=== PATIENT | female | born 1985 | race Asian ===

== ENCOUNTER 2017-02-12 09:04 | Inpatient (IN) | payer SELFPAY ==
[~2017-02-12] VITALS: Ht 154.9 cm; Wt 92.3 kg
[~2017-02-12 09:04] MED LIST: METF500T4 PO
[2017-02-12] MEDS ORDERED: ONDANSETRON 2MG/ML, 2ML IVPush ONE (10:00)
[2017-02-12] MEDS ORDERED: SODIUM CHLORIDE 0.9% 1,000ML IVBOLUS ONE (10:00)
[2017-02-12] MEDS ORDERED: SODIUM CHLORIDE FLUSH 10ML SYR IVF ONE (10:00)
[2017-02-12 10:12] LABS: HEMOGLOBIN 8.4 g/dL (11.7-16.4)
[2017-02-12] MEDS ORDERED: MORPHINE SULFATE 4 MG/ML, 1ML ONE ×2 (10:14→11:39)
[2017-02-12] MEDS ORDERED: ONDANSETRON 2MG/ML, 2ML ONE (10:14)
[2017-02-12] MEDS: MORPHINE SULFATE 4 MG/ML, 1ML IVPush PRN ×2 (10:23→11:48)
[2017-02-12 10:28] LABS: DIFF TOTAL CELLS COUNTED 100 CELL DIFF
[2017-02-12 10:30] LABS: ASPARTATE AMINO TRANSFERASE 8 U/L (15-37); BLOOD UREA NITROGEN 6 mg/dL (7-18)
[2017-02-12 10:31] LABS: ANISOCYTOSIS 2+; VERIFY COUNTS? YES
[2017-02-12 10:32] LABS: MICROCYTOSIS 2+; OVALOCYTES 1+
[2017-02-12 10:33] LABS: HYPOCHROMIA 2+
[2017-02-12 10:34] LABS: SCHISTOCYTES 1+
[2017-02-12] MEDS ORDERED: OMNIPAQUE 350 MG/ML, 100ML BOTTLE ONE (11:19)
[2017-02-12] MEDS ORDERED: CEFTRIAXONE PMX 1GM/50ML 50 ML IVPB ONE (13:00)
[2017-02-12] MEDS ORDERED: AZITHROMYCIN 500 MG TABLET PO ONE (13:00)
[2017-02-12] MEDS ORDERED: AZITHROMYCIN 250 MG TABLET ONE (13:07)
[2017-02-12] MEDS ORDERED: CEFTRIAXONE PMX 1GM/50ML 50 ML ONE (13:07)
[2017-02-12] MEDS ORDERED: AZITHROMYCIN 500 MG in SODIUM CHLORIDE 0.9% 250 ML IV ONE (14:00)
[2017-02-12] MEDS ORDERED: SODIUM CHLORIDE FLUSH 10ML SYR IVF PRN (15:00)
[2017-02-12] MEDS: SODIUM CHLORIDE 0.9% 1,000 ML IV SCH (15:43)
[2017-02-12] MEDS ORDERED: MORPHINE SULFATE 4 MG/ML, 1ML IVPush PRN (16:00)
[2017-02-12] MEDS ORDERED: LORazepam 2 MG/ML, 1ML IVPush PRN (16:00)
[2017-02-12] MEDS ORDERED: ONDANSETRON 2MG/ML, 2ML IVP PRN (16:00)
[2017-02-12] MEDS ORDERED: HYDROcodone/APAP 5/325 TABLET PO PRN (16:00)
[2017-02-12] MEDS ORDERED: IRON DEXTRAN IV PER PHARMACY IV PRN (16:00)
[2017-02-12] MEDS ORDERED: IRON DEXTRAN COMPLEX 25 MG in SODIUM CHLORIDE 0.9% 50 ML IV ONE ×2 (16:30→20:00)
[2017-02-12] MEDS: CEFOTETAN PMX 2GM/50ML 50 ML IV SCH (16:39)
[2017-02-12] MEDS ORDERED: IRON DEXTRAN COMPLEX 1,250 MG in SODIUM CHLORIDE 0.9% 250 ML IV ONE ×2 (17:30→21:00)
[2017-02-12] MEDS: DOXYCYCLINE 100 MG in DEXTROSE 5% 250 ML IV SCH (17:43)
[2017-02-12 17:58] VITALS: BP 110/74
[2017-02-12 19:54] VITALS: BP 111/74
[2017-02-12] MEDS ORDERED: EPINEPHRINE 1 MG/ML, 1ML ONE (20:22)
[2017-02-12] MEDS: FAMOTIDINE 20 MG/2 ML IV SCH (21:00)
[2017-02-13 03:27] VITALS: BP 103/69
[2017-02-13 05:43] LABS: HEMOGLOBIN 7.8 g/dL (11.7-16.4)
[2017-02-13] MEDS: CEFOTETAN PMX 2GM/50ML 50 ML IV SCH ×2 (05:47→17:27)
[2017-02-13 06:06] LABS: BLOOD UREA NITROGEN 6 mg/dL (7-18)
[2017-02-13 06:15] LABS: DIFF TOTAL CELLS COUNTED 100 CELL DIFF
[2017-02-13 06:22] LABS: ANISOCYTOSIS 2+; HYPOCHROMIA 2+; MICROCYTOSIS 2+; OVALOCYTES 1+; VERIFY COUNTS? YES
[2017-02-13 06:24] LABS: SCHISTOCYTES 1+
[2017-02-13] MEDS: DOXYCYCLINE 100 MG in DEXTROSE 5% 250 ML IV SCH (06:31)
[2017-02-13 07:21] VITALS: BP 121/81
[2017-02-13] MEDS: FAMOTIDINE 20 MG/2 ML IV SCH ×2 (09:00→21:00)
[2017-02-13] MEDS: SODIUM CHLORIDE 0.9% 1,000 ML IV SCH ×3 (11:43→21:02)
[2017-02-13 12:30] VITALS: BP 136/77
[2017-02-13 20:15] VITALS: BP 130/80
[2017-02-13] MEDS: DOXYCYCLINE 100MG TABLET PO SCH (21:02)
[2017-02-14] VITALS (7 sets, daily range): BP systolic 132–147; BP diastolic 69–85
[2017-02-14] MEDS: CEFOTETAN PMX 2GM/50ML 50 ML IV SCH ×2 (04:27→17:00)
[2017-02-14 05:35] LABS: HEMOGLOBIN 7.7 g/dL (11.7-16.4)
[2017-02-14 05:53] LABS: DIFF TOTAL CELLS COUNTED 100 CELL DIFF
[2017-02-14 05:56] LABS: ANISOCYTOSIS 2+; MICROCYTOSIS 2+; VERIFY COUNTS? YES
[2017-02-14 05:57] LABS: OVALOCYTES 1+; SCHISTOCYTES 1+
[2017-02-14 05:59] LABS: HYPOCHROMIA 1+; LARGE PLATELETS 1+
[2017-02-14] MEDS: DOXYCYCLINE 100MG TABLET PO SCH (08:40)
[2017-02-14] MEDS: FAMOTIDINE 20 MG/2 ML IV SCH ×2 (08:40→08:41)
[2017-02-14] MEDS: SODIUM CHLORIDE 0.9% 1,000 ML IV SCH ×2 (08:41→17:43)
[2017-02-14] MEDS ORDERED: AZITHROMYCIN 500 MG TABLET PO SCH (09:00)
[2017-02-14] MEDS ORDERED: AZIT500T4 PO (15:41)
[2017-02-14] MEDS ORDERED: FERR325T20 PO (15:41)
[2017-02-14] MEDS ORDERED: DOXY100T PO (15:42)
== END 2017-02-14 21:30 | disposition home or self-care (01) | DRG 759 ==
LOC: ED 09:54 → EDIP 14:34 → 3NE 15:53
PROVIDERS: ADMIT Internal Medicine; ATTEND Family Medicine
PROC: 0T9B70Z Drainage of Bladder with Drainage Device, Via Natural or Artificial Opening (ICD-10-PCS; principal; 2017-02-12)
DX: N73.0 Acute parametritis and pelvic cellulitis (principal); E66.9 Obesity, unspecified; Z82.49 Family history of ischemic heart disease and other diseases of the circulatory system; Z87.440 Personal history of urinary (tract) infections; Z83.3 Family history of diabetes mellitus; D53.9 Nutritional anemia, unspecified; N92.0 Excessive and frequent menstruation with regular cycle; E11.9 Type 2 diabetes mellitus without complications; N73.1 Chronic parametritis and pelvic cellulitis; Z88.8 Allergy status to other drugs, medicaments and biological substances; Z80.49 Family history of malignant neoplasm of other genital organs; Z68.38 Body mass index [BMI] 38.0-38.9, adult
CPT/HCPCS: 36415; 74177; 80048; 80053; 81001; 82728; 83690; 84703; 85025; 86850; 86900; 86923; 87491; 87591; 96361; 96365; 96375; 96376; J0696; J1750; J2405; J7060; Q9967; J7030; J7050; P9016; S0028; S0074

== ENCOUNTER 2017-03-21 08:18 | Emergency (ER) | payer SELFPAY ==
[~2017-03-21] VITALS: Ht 154.9 cm; Wt 96.8 kg
[~2017-03-21 08:18] MED LIST changes: +AZIT500T77 PO; +DOXY100T PO; +FERR325T20 PO
[2017-03-21 09:57] LABS: BLOOD UREA NITROGEN 9 mg/dL (7-18)
[2017-03-21 10:03] LABS: ASPARTATE AMINO TRANSFERASE 7 U/L (15-37)
[2017-03-21 10:07] LABS: ANISOCYTOSIS 2+; HYPOCHROMIA 1+; MICROCYTOSIS 2+; OVALOCYTES 1+
[2017-03-21 10:08] LABS: LARGE PLATELETS 1+
[2017-03-21 10:22] LABS: PATH.CAST-FLAG NOT PRESENT; SPERM-FLAG NOT PRESENT; SRC-FLAG NOT PRESENT; XTAL-FLAG NOT PRESENT; YLC-FLAG NOT PRESENT
[2017-03-21 10:58] VITALS: BP 122/68
== END 2017-03-21 11:02 | disposition home or self-care (01) ==
LOC: ED 09:42
DX: A08.4 Viral intestinal infection, unspecified (principal); E11.9 Type 2 diabetes mellitus without complications
CPT/HCPCS: 36415; 76700; 80053; 81001; 83690; 84703; 85025; 87086; 87147; 99285

== ENCOUNTER 2017-06-04 16:13 | Emergency (ER) | payer SELFPAY ==
[~2017-06-04] VITALS: Ht 154.9 cm; Wt 93.9 kg
[2017-06-04 16:14] VITALS: BP 143/93
== END 2017-06-04 16:57 | disposition home or self-care (01) ==
LOC: ED 16:40
DX: L03.032 Cellulitis of left toe (principal); E11.9 Type 2 diabetes mellitus without complications
CPT/HCPCS: 99283

== ENCOUNTER 2018-01-06 18:56 | Emergency (ER) | payer OTHER ==
[~2018-01-06] VITALS: Ht 154.9 cm; Wt 100.4 kg
[~2018-01-06 18:56] MED LIST changes: +AZIT500T5 PO; -AZIT500T77 PO; +FERR325T18 PO; -FERR325T20 PO
[2018-01-06 18:58] VITALS: BP 150/84
[2018-01-06] MEDS ORDERED: DIPH,PERTUSS(ACELL),TET VAC/PF 0.5 ML IM-VACC ONE ×2 (19:30→19:58)
[2018-01-06] MEDS ORDERED: LIDOCAINE-MPF 1%, 5ML INFIL ONE (19:30)
[2018-01-06] MEDS ORDERED: LIDOCAINE-MPF 1%, 2ML ONE (19:58)
== END 2018-01-06 20:23 | disposition home or self-care (01) ==
LOC: ED 20:17
DX: L02.415 Cutaneous abscess of right lower limb (principal); F17.200 Nicotine dependence, unspecified, uncomplicated; W22.8XXA Striking against or struck by other objects, initial encounter; Y93.89 Activity, other specified; Y99.8 Other external cause status; Y92.009 Unspecified place in unspecified non-institutional (private) residence as the place of occurrence of the external cause
CPT/HCPCS: 10060; 90471; 90715

== ENCOUNTER 2018-01-09 10:13 | Emergency (ER) | payer OTHER ==
[~2018-01-09] VITALS: Ht 154.9 cm; Wt 100.6 kg
[2018-01-09 10:30] VITALS: BP 131/75
[2018-01-09] MEDS ORDERED: BACITRACIN ZINC OINT 500U/GM, 0.9 GM ONE (10:58)
== END 2018-01-09 11:37 | disposition home or self-care (01) ==
LOC: ED 11:26
DX: Z48.01 Encounter for change or removal of surgical wound dressing (principal); E11.9 Type 2 diabetes mellitus without complications; E66.9 Obesity, unspecified; F17.200 Nicotine dependence, unspecified, uncomplicated
CPT/HCPCS: 99283

== ENCOUNTER 2018-01-21 07:14 | Emergency (ER) | payer OTHER ==
[~2018-01-21] VITALS: Ht 154.9 cm; Wt 95.2 kg
[2018-01-21 07:15] VITALS: BP 124/80
== END 2018-01-21 08:31 | disposition home or self-care (01) ==
LOC: ED 08:25
DX: M25.512 Pain in left shoulder (principal); E11.9 Type 2 diabetes mellitus without complications; F17.200 Nicotine dependence, unspecified, uncomplicated
CPT/HCPCS: 99281

== ENCOUNTER 2018-02-05 08:55 | Emergency (ER) | payer OTHER ==
[~2018-02-05] VITALS: Ht 154.9 cm; Wt 97.0 kg
[2018-02-05 09:04] VITALS: BP 121/75
== END 2018-02-05 09:32 | disposition home or self-care (01) ==
LOC: ED 09:14
DX: M79.642 Pain in left hand (principal); M25.512 Pain in left shoulder; E66.9 Obesity, unspecified; E11.9 Type 2 diabetes mellitus without complications; G90.50 Complex regional pain syndrome I, unspecified
CPT/HCPCS: 99282

== ENCOUNTER 2018-05-01 05:36 | Emergency (ER) | payer SELFPAY ==
[~2018-05-01] VITALS: Ht 160 cm; Wt 95.1 kg
[~2018-05-01 05:36] MED LIST changes: -METF500T4 PO; +METF500T5 PO
[2018-05-01 05:39] VITALS: BP 136/86
[2018-05-01] MEDS ORDERED: DEXAMETHASONE 4 MG TABLET PO ONE (06:30)
[2018-05-01] MEDS ORDERED: DEXAMETHASONE 4 MG TABLET ONE (06:34)
== END 2018-05-01 07:50 | disposition home or self-care (01) ==
LOC: ED 07:48
DX: J02.9 Acute pharyngitis, unspecified (principal)
CPT/HCPCS: 71046; 87081; 87880; 99285

== ENCOUNTER 2018-05-20 05:00 | Emergency (ER) | payer SELFPAY ==
[~2018-05-20] VITALS: Ht 154.9 cm; Wt 92.3 kg
[2018-05-20] MEDS ORDERED: FAMOTIDINE 20 MG/2 ML ONE (05:25)
[2018-05-20] MEDS ORDERED: MORPHINE SULFATE 4 MG/ML, 1ML ONE (05:25)
[2018-05-20] MEDS ORDERED: ONDANSETRON ODT 4 MG ONE (05:25)
[2018-05-20] MEDS ORDERED: FAMOTIDINE 20 MG/2 ML IVP ONE (05:30)
[2018-05-20] MEDS ORDERED: SODIUM CHLORIDE FLUSH 10ML SYR IVF ONE (05:30)
[2018-05-20] MEDS ORDERED: MORPHINE SULFATE 4 MG/ML, 1ML IVPush PRN (05:30)
[2018-05-20 05:50] LABS: MEAN CORPUSCULAR HEMOGLOBIN 19.3 pg (27.0-34.8); MEAN CORPUSCULAR HGB CONC 30.4 g/dL (32.4-35.8); MEAN CORPUSCULAR VOLUME 63.7 fL (80-100); PLATELET COUNT 374 x10^3/uL (130-400); RED BLOOD COUNT 4.77 x10^6/uL (3.82-5.3); RED CELL DISTRIBUTION WIDTH 20.8 % (9.6-15.2)
[2018-05-20 05:52] LABS: MICROSCOPIC INDICATED
[2018-05-20 05:59] LABS: ALBUMIN 3.5 g/dL (3.4-5.0); ANION GAP 7 mmol/L (5-15); CALCIUM 8.6 mg/dL (8.5-10.1); CHLORIDE 111 mmol/L (98-107)
[2018-05-20 06:01] LABS: CULTURE INDICATED? NO
[2018-05-20 06:04] LABS: ALANINE AMINOTRANSFERASE 13 U/L (12-78); ALKALINE PHOSPHATASE 63 U/L (45-117); BILIRUBIN,TOTAL 0.6 mg/dL (0.2-1.0); CREATININE 0.57 mg/dL (0.55-1.02); TOTAL PROTEIN 7.4 g/dL (6.4-8.2)
[2018-05-20 06:12] LABS: ANISOCYTOSIS 2+; BASOPHILS # (AUTO) 0.02 x10^3/uL (0-0.1); BASOPHILS % (AUTO) 0 % (0-1); EOSINOPHILS % (AUTO) 2 % (1-7); LYMPHOCYTES # (AUTO) 1.73 x10^3/uL (1-3.4); LYMPHOCYTES % (AUTO) 28 % (22-44); MD MORPH REVIEW ONLY; MICROCYTOSIS 2+; MONOCYTES # (AUTO) 0.28 x10^3/uL (0.2-0.8); MONOCYTES % (AUTO) 5 % (2-9); NEUTROPHILS # (AUTO) 4.04 x10^3/uL (1.8-6.8); NEUTROPHILS % (AUTO) 66 % (42-75)
[2018-05-20 06:13] LABS: <PLATELET ESTIMATE> ADEQUATE; <PLT MORPHOLOGY> NORMAL PLT MORPH; OVALOCYTES 1+; POLYCHROMASIA 1+
[2018-05-20 06:29] VITALS: BP 114/64
[2018-05-20] MEDS ORDERED: KETOROLAC 30 MG/1 ML IVPush ONE (07:00)
[2018-05-20] MEDS ORDERED: MAALOX/HYOSCYAMINE/LIDOCAINE 45 ML BTL PO ONE (07:00)
[2018-05-20] MEDS ORDERED: KETOROLAC 30 MG/1 ML ONE (07:23)
[2018-05-20] MEDS ORDERED: MAALOX/HYOSCYAMINE/LIDOCAINE 45 ML BTL ONE (07:23)
[2018-05-20] MEDS ORDERED: DICYCLOMINE 10 MG/ML, 2ML ONE (07:24)
[2018-05-20] MEDS ORDERED: DICYCLOMINE 10 MG/ML, 2ML IM ONE (07:30)
[2018-05-20] MEDS ORDERED: PROMETHAZINE 25 MG/ML, 1ML ONE (07:35)
[2018-05-20] MEDS ORDERED: PROMETHAZINE 25 MG/ML, 1ML IM ONE (08:00)
== END 2018-05-20 08:16 | disposition home or self-care (01) ==
LOC: ED 06:36
DX: K29.00 Acute gastritis without bleeding (principal); K82.4 Cholesterolosis of gallbladder; E11.9 Type 2 diabetes mellitus without complications
CPT/HCPCS: 36415; 76700; 80053; 81001; 83690; 84703; 85025; 96372; 96374; 96375; 99285; J0500; J1885; J2550; S0028

== ENCOUNTER 2018-05-22 06:56 | Observation (INO) | payer OTHER ==
[~2018-05-22] VITALS: Ht 154.9 cm; Wt 94.2 kg
[2018-05-22] MEDS ORDERED: SODIUM CHLORIDE FLUSH 10ML SYR IVF ONE (08:00)
[2018-05-22] MEDS ORDERED: ONDANSETRON 2MG/ML, 2ML IVPush ONE ×2 (08:00→13:30)
[2018-05-22] MEDS ORDERED: SODIUM CHLORIDE 0.9% 1,000ML IVBOLUS ONE (08:00)
[2018-05-22] MEDS ORDERED: ONDANSETRON 2MG/ML, 2ML ONE ×2 (08:07→12:45)
[2018-05-22] MEDS ORDERED: MORPHINE SULFATE 4 MG/ML, 1ML ONE ×2 (08:08→09:08)
[2018-05-22] MEDS: MORPHINE SULFATE 4 MG/ML, 1ML IVPush PRN ×2 (08:26→09:12)
[2018-05-22 08:34] LABS: MEAN CORPUSCULAR HGB CONC 30.1 g/dL (32.4-35.8); MEAN CORPUSCULAR VOLUME 63.3 fL (80-100); MEAN PLATELET VOLUME 7.7 fL (7.4-10.4); PLATELET COUNT 352 x10^3/uL (130-400); RED BLOOD COUNT 4.48 x10^6/uL (3.82-5.3); RED CELL DISTRIBUTION WIDTH 20.8 % (9.6-15.2)
[2018-05-22 08:37] LABS: ALBUMIN 3.2 g/dL (3.4-5.0); ANION GAP 7 mmol/L (5-15); CALCIUM 7.9 mg/dL (8.5-10.1); CHLORIDE 111 mmol/L (98-107); CREATININE 0.55 mg/dL (0.55-1.02)
[2018-05-22 08:51] LABS: BASOPHILS # (AUTO) 0.05 x10^3/uL (0-0.1); BASOPHILS % (AUTO) 1 % (0-1); EOSINOPHILS # (AUTO) 0.05 x10^3/uL (0-0.4); EOSINOPHILS % (AUTO) 1 % (1-7); LYMPHOCYTES # (AUTO) 1.51 x10^3/uL (1-3.4); LYMPHOCYTES % (AUTO) 22 % (22-44); MD MORPH REVIEW ONLY; MONOCYTES # (AUTO) 0.42 x10^3/uL (0.2-0.8); MONOCYTES % (AUTO) 6 % (2-9); NEUTROPHILS # (AUTO) 4.87 x10^3/uL (1.8-6.8); NEUTROPHILS % (AUTO) 71 % (42-75)
[2018-05-22 08:52] LABS: ANISOCYTOSIS 2+; HYPOCHROMIA 1+; MICROCYTOSIS 2+; POLYCHROMASIA 1+
[2018-05-22 08:53] LABS: <PLATELET ESTIMATE> ADEQUATE; <PLT MORPHOLOGY> NORMAL PLT MORPH; OVALOCYTES 1+
[2018-05-22] MEDS ORDERED: D5%-0.45% NACL 1,000 ML IV ONE (09:10)
[2018-05-22] MEDS ORDERED: ONDANSETRON 2MG/ML, 2ML IVPush PRN ×2 (09:30→12:30)
[2018-05-22] MEDS ORDERED: CEFOTETAN PMX 2GM/50ML 50 ML IV ONE (09:30)
[2018-05-22] MEDS ORDERED: MORPHINE SULFATE 4 MG/ML, 1ML IVPush PRN ×3 (09:30→12:30)
[2018-05-22] MEDS ORDERED: OMNIPAQUE 350 MG/ML, 100ML BOTTLE ONE (09:50)
[2018-05-22 09:55] VITALS: BP 127/70
[2018-05-22] MEDS ORDERED: FENTANYL PF 250 MCG/5ML ONE (10:10)
[2018-05-22] MEDS ORDERED: MIDAZOLAM 1 MG/ML, 2ML ONE (10:10)
[2018-05-22] MEDS ORDERED: PROPOFOL 10 MG/ML, 20ML ONE (10:11)
[2018-05-22] MEDS ORDERED: ROCURONIUM 10MG/ML,5ML ONE (10:12)
[2018-05-22] MEDS ORDERED: NEOSTIGMINE 1 MG/ML, 10ML ONE (10:13)
[2018-05-22] MEDS ORDERED: GLYCOPYRROLATE 0.4 MG/2 ML, 2ML ONE (10:13)
[2018-05-22 10:48] LABS: MICROSCOPIC AUTO
[2018-05-22] MEDS ORDERED: EPINEPHRINE 1 MG/ML, 1ML ONE (10:51)
[2018-05-22] MEDS ORDERED: BUPIVACAINE/PF 0.5% ONE (10:51)
[2018-05-22 10:55] LABS: CULTURE INDICATED? YES
[2018-05-22] MEDS ORDERED: PROMETHAZINE 12.5 MG SUPP PR PRN (11:00)
[2018-05-22] MEDS ORDERED: LABETALOL 5MG/ML, 20ML IV PRN (11:00)
[2018-05-22] MEDS ORDERED: MEPERIDINE/PF 25MG/0.5ML IVPush PRN (11:00)
[2018-05-22] MEDS ORDERED: FENTANYL PF 100 MCG/2ML IV PRN ×2 (11:00→13:30)
[2018-05-22] MEDS ORDERED: hydrALAzine 20 MG/ML, 1ML IV PRN (11:00)
[2018-05-22] MEDS ORDERED: ONDANSETRON ODT 8 MG PO PRN (11:00)
[2018-05-22] MEDS ORDERED: OXYcodone 5 MG/5 ML ORAL.SOL UDC PO PRN ×3 (11:00→13:30)
[2018-05-22] MEDS ORDERED: PROMETHAZINE 25 MG SUPP PR PRN (11:00)
[2018-05-22] MEDS ORDERED: PROMETHAZINE 25 MG/ML, 1ML IV PRN ×2 (11:00→13:30)
[2018-05-22] MEDS ORDERED: HYDROmorphone 1 MG/ML, 1ML IV PRN (11:00)
[2018-05-22 11:01] LABS: HCG UR SG 1.036 (1.003-1.030)
[2018-05-22] MEDS ORDERED: DEXAMETHASONE 4 MG/ML, 1ML ONE (11:27)
[2018-05-22] MEDS ORDERED: CEFOTETAN PMX 2GM/50ML 50 ML ONE (11:28)
[2018-05-22] MEDS ORDERED: DIPHENHYDRAMINE 50 MG/ML, 1ML IV PRN (12:30)
[2018-05-22] MEDS ORDERED: KETOROLAC 30 MG/1 ML IV PRN (12:30)
[2018-05-22] MEDS ORDERED: ACETAMINOPHEN 650 MG/20.3 ML UDC PO PRN (12:30)
[2018-05-22] MEDS ORDERED: OXYcodone 5 MG/5 ML ORAL.SOL UDC ONE (12:40)
[2018-05-22] MEDS ORDERED: PROMETHAZINE 25 MG/ML, 1ML ONE (13:02)
[2018-05-22] MEDS ORDERED: HALOPERIDOL 5 MG/ML ONE (13:03)
[2018-05-22] MEDS ORDERED: FENTANYL PF 100 MCG/2ML ONE (13:13)
[2018-05-22] MEDS: POTASSIUM CHLORIDE 20 MEQ in D5%-0.45% NACL 1,000 ML IV SCH ×2 (14:35→23:06)
[2018-05-22 19:07] VITALS: BP 134/83
[2018-05-22] MEDS: CEFOTETAN PMX 1GM/50ML 50 ML IVPB SCH ×2 (21:29→23:00)
[2018-05-23 01:00] VITALS: BP 135/81
[2018-05-23 04:00] VITALS: BP 117/75
[2018-05-23 05:08] LABS: BASOPHILS % (AUTO) 0 % (0-1); EOSINOPHILS # (AUTO) 0.01 x10^3/uL (0-0.4); EOSINOPHILS % (AUTO) 0 % (1-7); LYMPHOCYTES # (AUTO) 1.06 x10^3/uL (1-3.4); LYMPHOCYTES % (AUTO) 13 % (22-44); MD NO; MEAN CORPUSCULAR HEMOGLOBIN 19.1 pg (27.0-34.8); MEAN CORPUSCULAR VOLUME 63.7 fL (80-100); MEAN PLATELET VOLUME 8.3 fL (7.4-10.4); MONOCYTES # (AUTO) 0.31 x10^3/uL (0.2-0.8); MONOCYTES % (AUTO) 4 % (2-9); NEUTROPHILS # (AUTO) 6.58 x10^3/uL (1.8-6.8); NEUTROPHILS % (AUTO) 83 % (42-75); PLATELET COUNT 381 x10^3/uL (130-400); RED BLOOD COUNT 4.43 x10^6/uL (3.82-5.3)
[2018-05-23 05:13] LABS: ANION GAP 5 mmol/L (5-15); CALCIUM 8.7 mg/dL (8.5-10.1); CHLORIDE 110 mmol/L (98-107); CREATININE 0.71 mg/dL (0.55-1.02)
[2018-05-23 07:30] VITALS: BP 117/74
[2018-05-23] MEDS: POTASSIUM CHLORIDE 20 MEQ in D5%-0.45% NACL 1,000 ML IV SCH (08:32)
[2018-05-23] MEDS ORDERED: OXYC5TAB2 PO (08:50)
[2018-05-23] MEDS ORDERED: ONDA4TAB7 PO (08:52)
[2018-05-23] MEDS ORDERED: ENOXAPARIN 40 MG/0.4 ML SQ SCH (09:00)
[2018-05-23 09:37] VITALS: BP 127/68
== END 2018-05-23 10:35 | disposition home or self-care (01) ==
LOC: OR 09:09 → EDIP 09:10 → INTOOBSV 09:10 → OR 09:23 → 4NOR 09:51 → DCLOUNGE 05-23 10:19
PROVIDERS: ADMIT Surgery; ATTEND Surgery
DX: K35.80 Unspecified acute appendicitis (principal); N80.9 Endometriosis, unspecified; E11.9 Type 2 diabetes mellitus without complications; D64.9 Anemia, unspecified
CPT/HCPCS: 36415; 44970; 74177; 80048; 81001; 81025; 82040; 85025; 87086; 88304; 96361; 96365; 96366; 96375; 96376; 99285; G0378; J0171; J1100; J1650; J1885; J2250; J2405; J2550; J2704; J2710; J3010; J3480; J3490; J7030; Q9967; S0074

== ENCOUNTER 2018-07-31 05:41 | Emergency (ER) | payer BC, MEDICAID, OTHER ==
[~2018-07-31] VITALS: Ht 154.9 cm; Wt 91.2 kg
[~2018-07-31 05:41] MED LIST changes: +METF500T17 PO; -METF500T5 PO; +ONDA4TAB7 PO; +OXYC5TAB2 PO
[2018-07-31] MEDS ORDERED: ONDANSETRON ODT 4 MG ONE (06:19)
[2018-07-31] MEDS ORDERED: MORPHINE SULFATE 4 MG/ML, 1ML ONE (06:19)
[2018-07-31 06:27] LABS: CULTURE INDICATED? YES; MICROSCOPIC INDICATED
[2018-07-31] MEDS ORDERED: ONDANSETRON ODT 4 MG PO ONE (06:30)
[2018-07-31] MEDS ORDERED: SODIUM CHLORIDE FLUSH 10ML SYR IVF ONE (06:30)
[2018-07-31] MEDS ORDERED: MORPHINE SULFATE 4 MG/ML, 1ML IVPush PRN (06:30)
[2018-07-31 06:35] LABS: MEAN CORPUSCULAR HEMOGLOBIN 18.5 pg (27.0-34.8); MEAN CORPUSCULAR HGB CONC 30.3 g/dL (32.4-35.8); MEAN PLATELET VOLUME 8.4 fL (7.4-10.4); PLATELET COUNT 286 x10^3/uL (130-400); RED BLOOD COUNT 4.57 x10^6/uL (3.82-5.3); RED CELL DISTRIBUTION WIDTH 21.9 % (9.6-15.2)
[2018-07-31 06:42] LABS: ALBUMIN 3.6 g/dL (3.4-5.0); ANION GAP 7 mmol/L (5-15); CALCIUM 8.4 mg/dL (8.5-10.1); CHLORIDE 110 mmol/L (98-107); CREATININE 0.55 mg/dL (0.55-1.02)
[2018-07-31 06:59] LABS: MD MORPH REVIEW ONLY
[2018-07-31 07:00] LABS: BASOPHILS # (AUTO) 0.06 x10^3/uL (0-0.1); BASOPHILS % (AUTO) 1 % (0-1); EOSINOPHILS % (AUTO) 2 % (1-7); LYMPHOCYTES % (AUTO) 32 % (22-44); MONOCYTES # (AUTO) 0.56 x10^3/uL (0.2-0.8); MONOCYTES % (AUTO) 9 % (2-9); NEUTROPHILS # (AUTO) 3.71 x10^3/uL (1.8-6.8); NEUTROPHILS % (AUTO) 57 % (42-75)
[2018-07-31 07:01] LABS: <PLATELET ESTIMATE> ADEQUATE; ANISOCYTOSIS 2+; HYPOCHROMIA 1+; MICROCYTOSIS 2+; OVALOCYTES 1+; POLYCHROMASIA 1+
[2018-07-31 07:02] LABS: <PLT MORPHOLOGY> NORMAL PLT MORPH
[2018-07-31 08:02] VITALS: BP 115/70
== END 2018-07-31 08:06 | disposition home or self-care (01) ==
LOC: ED 07:43
DX: R10.32 Left lower quadrant pain (principal); E11.9 Type 2 diabetes mellitus without complications
CPT/HCPCS: 36415; 76830; 80048; 81001; 82040; 84703; 85025; 87086; 96374; 99285; Q0162

== ENCOUNTER 2019-06-03 04:20 | Emergency (ER) | payer MEDICAID, OTHER ==
[~2019-06-03] VITALS: Ht 175.3 cm; Wt 88.0 kg
[2019-06-03 07:02] VITALS: BP 103/59
== END 2019-06-03 07:52 | disposition home or self-care (01) ==
LOC: ED 07:50
DX: R10.31 Right lower quadrant pain (principal); R10.11 Right upper quadrant pain; R11.2 Nausea with vomiting, unspecified; R19.7 Diarrhea, unspecified; R63.0 Anorexia; E11.9 Type 2 diabetes mellitus without complications; N73.9 Female pelvic inflammatory disease, unspecified; G90.50 Complex regional pain syndrome I, unspecified; Z87.19 Personal history of other diseases of the digestive system
CPT/HCPCS: 36415; 76700; 76830; 80053; 81001; 83690; 84703; 85025; 87086; 87147; 96374; 96375; 99284; J2270; J2405

== ENCOUNTER 2019-09-08 06:19 | Emergency (ER) | payer SELFPAY ==
[~2019-09-08] VITALS: Ht 154.9 cm; Wt 88.4 kg
[2019-09-08 06:21] VITALS: BP 149/74
--- NOTE | 2019-09-08 06:32 | NUR ---
PT AMBULATES FROM TRIAGE TO ROOM WITH STEADY GAIT AT THIS TIME.
--- NOTE | 2019-09-08 06:40 | NUR ---
PT RESTING IN [facility] AT THIS TIME; AWAITING ERP. PT EDUCATED ON ER PROCESS AND VERBALIZES UNDERSTANDING.
--- NOTE | 2019-09-08 06:56 | NUR ---
REPORT OF PT TO [facility]. ALL QUESTIONS ANSWERED.
== END 2019-09-08 07:25 | disposition home or self-care (01) ==
LOC: ED 07:16
DX: J02.8 Acute pharyngitis due to other specified organisms (principal)
CPT/HCPCS: 99281

== ENCOUNTER 2019-09-14 06:23 | Emergency (ER) | payer MEDICAID ==
[~2019-09-14] VITALS: Ht 154.9 cm; Wt 88.2 kg
[~2019-09-14 06:23] MED LIST changes: +AZIT500T10 PO; -AZIT500T5 PO
--- NOTE | 2019-09-14 07:26 | NUR ---
Pt provided UA cup and education on clean catch. Pt ambulates with steady gait and balance to restroom. NADN. No other needs expressed.
[2019-09-14 07:45] LABS: ALBUMIN 3.4 g/dL (3.4-5.0); ANION GAP 5 mmol/L (5-15); CHLORIDE 112 mmol/L (98-107)
[2019-09-14 07:46] LABS: MEAN CORPUSCULAR HEMOGLOBIN 19.3 pg (27.0-34.8); MEAN CORPUSCULAR VOLUME 65.2 fL (80-100); MEAN PLATELET VOLUME 7.7 fL (7.4-10.4); PLATELET COUNT 322 x10^3/uL (130-400); RED BLOOD COUNT 4.45 x10^6/uL (3.82-5.3); RED CELL DISTRIBUTION WIDTH 22.9 % (9.6-15.2)
[2019-09-14 07:51] LABS: ALANINE AMINOTRANSFERASE 12 U/L (12-78); ALKALINE PHOSPHATASE 69 U/L (45-117); BILIRUBIN,TOTAL 0.2 mg/dL (0.2-1.0); CREATININE 0.54 mg/dL (0.55-1.02); TOTAL PROTEIN 6.9 g/dL (6.4-8.2); TROPONIN I < 0.015 ng/mL (0.000-0.045)
[2019-09-14 08:06] LABS: MICROSCOPIC AUTO
[2019-09-14 08:20] VITALS: BP 129/80
[2019-09-14 08:24] LABS: CULTURE INDICATED? NO
[2019-09-14 09:00] LABS: MEAN CORPUSCULAR HGB CONC 29.6 g/dL (32.4-35.8)
[2019-09-14 09:02] LABS: ANISOCYTOSIS 2+; BASOPHILS # (AUTO) 0.03 x10^3/uL (0-0.1); BASOPHILS % (AUTO) 1 % (0-1); EOSINOPHILS % (AUTO) 2 % (1-7); HYPOCHROMIA 1+; LYMPHOCYTES # (AUTO) 1.09 x10^3/uL (1-3.4); LYMPHOCYTES % (AUTO) 25 % (22-44); MD MORPH REVIEW ONLY; MICROCYTOSIS 2+; MONOCYTES # (AUTO) 0.28 x10^3/uL (0.2-0.8); MONOCYTES % (AUTO) 7 % (2-9); NEUTROPHILS # (AUTO) 2.85 x10^3/uL (1.8-6.8); NEUTROPHILS % (AUTO) 66 % (42-75); POLYCHROMASIA 1+
[2019-09-14 09:14] LABS: <PLATELET ESTIMATE> ADEQUATE; <PLT MORPHOLOGY> NORMAL PLT MORPH; OVALOCYTES 1+
--- NOTE | 2019-09-14 09:26 | NUR ---
Patient given discharge instructions and they have confirmed that they understand the instructions. Patient ambulatory with steady gait. Pt left with d/c paperwork and all personal belongings. NADN. No needs requested.
== END 2019-09-14 09:33 | disposition home or self-care (01) ==
LOC: ED 07:15
DX: R42 Dizziness and giddiness (principal); R51 Headache
CPT/HCPCS: 36415; 80053; 81001; 84484; 85025; 93005; 99284